=== PATIENT | female | born 1970 | race Caucasian/White ===

== ENCOUNTER 2025-08-28 06:24 | Day surgery (SDC) | payer BC, SELFPAY ==
[2025-08-22 11:35] LABS: Hematocrit 44.6 % (37.0-47.0); Hemoglobin 15.0 g/dL (12.0-16.0); Mean Corp Hgb Conc. 33.6 g/dL (33.0-37.0); Mean Corpuscular Volume 91.6 fL (81.0-99.0); Platelet Count 401 10^3/uL (130-400); Red Cell Dist. Width 13.7 % (11.5-14.5)
[2025-08-22 11:56] LABS: Blood Urea Nitrogen 12 mg/dl (7-17); Calcium 9.1 mg/dl (8.4-10.2); Carbon Dioxide 25 mmol/L (22-30); Chloride 105 mmol/L (98-107); Glucose 82 mg/dl (70-99); Potassium 4.6 mmol/L (3.5-5.1); Sodium 138 mmol/L (135-145); eGFR > 60.00
[2025-08-22 14:03] VITALS: BMI 26.7
[2025-08-28] VITALS (13 sets, daily range): BP systolic 90–142; BP diastolic 42–78; BMI 26.7
[2025-08-28 10:19] LABS: Glucose - Point of Care 71 mg/dl (70-99)
[2025-08-28] MEDS: NORMOSOL-R/PLASMALYTE-A 1000 IV ×3 (10:46→23:27)
[2025-08-28 13:34] LABS: Glucose - Point of Care 114 mg/dl (70-99)
[2025-08-28 15:08] LABS: Hematocrit 35.4 % (37.0-47.0); Hemoglobin 11.5 g/dL (12.0-16.0); Mean Corp Hgb Conc. 32.5 g/dL (33.0-37.0); Mean Corpuscular Volume 93.4 fL (81.0-99.0); Platelet Count 337 10^3/uL (130-400); Red Cell Dist. Width 13.3 % (11.5-14.5)
[2025-08-28 15:11] LABS: APTT 30.7 Sec (23.4-35.0); INR 1.12; PT 14.8 Sec (11.4-14.6)
[2025-08-28 15:25] LABS: Glucose - Point of Care 138 mg/dl (70-99)
[2025-08-28] MEDS: DILAUDID 0.5 MG IV (17:24)
[2025-08-28] MEDS: ROXICODONE 2.5 MG PO (19:33)
[2025-08-28 20:25] LABS: Hematocrit 35.5 % (37.0-47.0); Hemoglobin 12.0 g/dL (12.0-16.0); Mean Corp Hgb Conc. 33.8 g/dL (33.0-37.0); Mean Corpuscular Volume 91.0 fL (81.0-99.0); Nucleated Red Blood Cells % 0 %; Platelet Count 315 10^3/uL (130-400); Red Cell Dist. Width 13.3 % (11.5-14.5)
[2025-08-28] MEDS: ROXICODONE 5 MG PO (20:56)
[2025-08-28] MEDS: COLACE 100 MG PO (20:56)
[2025-08-29] MEDS: ROXICODONE 5 MG PO ×2 (01:21→08:02)
[2025-08-29 03:00] VITALS: BP 124/63
[2025-08-29 07:17] VITALS: BP 133/62
[2025-08-29] MEDS: SPIRIVA RESPIMAT 2.5 MCG 2 PUFF INH (07:39)
[2025-08-29] MEDS: SYMBICORT 160/4.5 MCG INHALER 2 PUFF INH (07:39)
[2025-08-29] MEDS: COLACE 100 MG PO (08:03)
[2025-08-29 08:15] LABS: Hematocrit 36.3 % (37.0-47.0); Hemoglobin 11.6 g/dL (12.0-16.0); Mean Corp Hgb Conc. 32.0 g/dL (33.0-37.0); Mean Corpuscular Volume 94.8 fL (81.0-99.0); Platelet Count 319 10^3/uL (130-400); Red Cell Dist. Width 13.4 % (11.5-14.5)
--- NOTE | 2025-08-29 08:15 | W.PN.GYN ---
Today's Communication / Plan
-
1. d/c home
Physician Note
-
Assessment and Plan:
55 yo woman POD 1 s/p vaginal colpopexy, anterior/posterior colporrhaphy, perineoplasty, cystoscopy complicated by increase in ebl of 500 ml. Hgb stabilized overnight. Patient meeting postop milestones. Plan for d/c home today pending morning CBC
1. postop care
-hep lock iv
-regular diet
-dvt ppx: ambulate, scds
-cbc: hgb: 11.5-->12.0-->11.6
-uop: adequate
-passed voiding trial
-transition to oral pain medications
2. dispo
-d/c home today
Subjective:
-rectal pressure and discomfort
-toelrating regular diet
-passing flatus
-ambulated to restroom
-voiding in bed keita
Objective:
Intake and Output
08/27/25 08/28/25 08/29/25 08/30/25
06:59 06:59 06:59 06:59
Intake Total 1400 / 1400
Output Total 350 / 350
Balance 1050 / 1050
Intake:
Oral fluids 1200 / 1200
IV fluids (Total) 200 / 200
normosol 200 / 200
Output:
Urine, [place] 50 / 50
Urine, Voided 300 / 300
Other:
Number of approximated LARGE 2
amounts of urine
Vital Signs
Temp Pulse Resp BP Pulse Ox
98.1 F 88 17 133/62 97
08/29/25 07:17 08/29/25 07:17 08/29/25 07:17 08/29/25 07:17 08/29/25 07:17
Lab Results
08/29/25 07:47
abdomen: soft, nontender
gu: packing removed, spotting
LE: nontender, no swelling, no erythema
[2025-08-29 08:51] LABS: Blood Urea Nitrogen 7 mg/dl (7-17); Carbon Dioxide 24 mmol/L (22-30); Chloride 106 mmol/L (98-107); Estimated Creatinine Clearance 96 ml/min; Potassium 4.4 mmol/L (3.5-5.1); Sodium 135 mmol/L (135-145)
[2025-08-29] MEDS: NORVASC 5 MG PO (09:29)
[2025-08-29] MEDS: DULCOLAX 10 MG RECTAL (10:20)
--- NOTE | 2025-08-29 10:49 | CM ---
Addendum entered by Jess Asher 08/29/25 10:51:
Patient for discharge home today.
Original Note:
Patient seen at bedside. Patient lives with family and plan is for home with no needs. CM confirmed with physician, no VN needed. Patient uses the [facility] in [place] and her PCP is Dr. Reyes. Patient stated that she has no needs at this time. CM
will continue to follow for discharge planning needs.
Plan; home with no needs at this time
[2025-08-29 12:16] VITALS: BP 113/61
== END 2025-08-29 12:19 | disposition home or self-care (01) ==
LOC: SDS 06:24
PROVIDERS: ATTENDING PHYSICIAN Obstetrics & Gynecology; FAMILY PHYSICIAN Internal Medicine
DX: N99.3 Prolapse of vaginal vault after hysterectomy (principal); Y83.8 Other surgical procedures as the cause of abnormal reaction of the patient, or of later complication, without mention of misadventure at the time of the procedure; N39.3 Stress incontinence (female) (male)
CPT/HCPCS: 57282; 57260; 36415; 80048; 80051; 82565; 82962; 84520; 85025; 85027; 85610; 85730; 86850; 86900; 86901; 94640; A4648